=== PATIENT | male | born 1980 | race African-American/Black ===

== ENCOUNTER 2017-10-27 11:23 | Inpatient (IN) | payer OTHER ==
[2017-10-27 14:07] VITALS: BMI 24.9
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
[2017-10-27] MEDS ORDERED: MAGNESIUM CITRATE 300 ML BOTTLE PO PRN (14:40)
[2017-10-27] MEDS ORDERED: hydrOXYzine PAMOATE 50 MG CAPSULE (FP) PO PRN (14:40)
[2017-10-27] MEDS ORDERED: guaiFENesin/D-METHORPHAN HB 10 ML UNIT-DOSE CUPS PO PRN (14:40)
[2017-10-27] MEDS ORDERED: MENTHOL/PHENOL 1 EACH UD MM PRN (14:40)
[2017-10-27] MEDS ORDERED: MAGNESIUM HYDROX 2400MG/30ML ORAL SUSPENSION 30 ML CUP PO PRN (14:40)
[2017-10-27] MEDS ORDERED: chlordiazePOXIDE HCL 25 MG CAPSULE PO PRN (14:40)
[2017-10-27] MEDS ORDERED: NICOTINE POLACRILEX 2 MG GUM BUC PRN (14:40)
[2017-10-27] MEDS ORDERED: LOPERAMIDE HCL 2 MG CAPSULE PO PRN (14:40)
[2017-10-27] MEDS ORDERED: P-EPHED 60MG/TRIPROLIDI 2.5MG TABLET PO PRN (14:40)
[2017-10-27] MEDS ORDERED: MAG HYDROX/AL HYDROX/SIMETH 30 ML UNIT-DOSE CUP PO PRN (14:40)
[2017-10-27] MEDS ORDERED: chlordiazePOXIDE HCL 25 MG CAPSULE PO ONE (15:35)
[2017-10-27] MEDS: chlordiazePOXIDE HCL 25 MG CAPSULE PO SCH ×2 (17:04→22:20)
[2017-10-27] MEDS: NICOTINE 21 MG/24 HOURS TOPICAL PATCH TD SCH (17:06)
[2017-10-27 17:09] LABS: URINE APPEARANCE CLEAR; URINE BILIRUBIN NEGATIVE (NEGATIVE); URINE BLOOD NEGATIVE (NEGATIVE); URINE COLOR YELLOW; URINE GLUCOSE (UA) NEGATIVE (NEGATIVE); URINE KETONE NEGATIVE (NEGATIVE); URINE LEUK ESTERASE NEGATIVE (NEGATIVE); URINE NITRITE NEGATIVE (NEGATIVE); URINE PROTEIN NEGATIVE (NEGATIVE); URINE UROBILINOGEN NEGATIVE mg/dL (0.2-1.0)
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
[2017-10-27] MEDS: ACETAMINOPHEN 325 MG TABLET (FP) PO PRN (22:20)
[2017-10-27] MEDS: diphenhydrAMINE HCL 50 MG CAPSULE PO PRN (22:20)
[2017-10-27] MEDS: THIAMINE HCL 100 MG TABLET (FP) PO SCH (22:20)
[2017-10-28] MEDS: chlordiazePOXIDE HCL 25 MG CAPSULE PO SCH ×4 (06:03→22:12)
[2017-10-28] MEDS: IBUPROFEN 400 MG TABLET (FP) PO PRN (09:09)
--- NOTE | 2017-10-28 09:48 | EKG ---
Test Reason : Blood Pressure : / mmHG Vent. Rate : 072 BPM Atrial Rate : 072 BPM P-R Int : 146 ms QRS Dur : 086 ms QT Int : 378 ms P-R-T Axes : 061 069 047 degrees QTc Int : 413 ms NORMAL SINUS RHYTHM WITH SINUS ARRHYTHMIA NORMAL ECG NO PREVIOUS ECGS AVAILABLE Confirmed by ELISA RAMIREZ, CARLTON ([id number]) on 10/28/2017 9:47:53 AM Referred By: Confirmed By:CARLTON PÉREZ MD
[2017-10-28 10:26] LABS: HEMATOCRIT 43.6 % (35.4-49); HEMOGLOBIN 14.9 GM/dL (11.7-16.9); MCH 32.4 pg (25.7-33.7); MCHC 34.2 g/dl (32.0-35.9); MEAN CELL VOLUME 94.7 fl (80-96); MEAN PLT VOLUME 9.1 fl (7.5-11.1); PLATELET COUNT 285 K/MM3 (134-434); RDW 14.7 % (11.9-15.9); WHITE BLOOD COUNT 7.7 K/mm3 (4.0-10.0)
[2017-10-28] MEDS: PRENATAL VITAMINS W/ FOLIC ACID TABLET (FP) PO SCH (10:34)
[2017-10-28] MEDS: NICOTINE 21 MG/24 HOURS TOPICAL PATCH TD SCH (10:34)
[2017-10-28 10:36] LABS: CHLORIDE 104 mmol/L (98-107); POTASSIUM 4.6 mmol/L (3.5-5.1); SODIUM 142 mmol/L (136-145)
[2017-10-28 10:46] LABS: ALK PHOS 72 U/L (45-117); ANION GAP 12 (8-16); BILIRUBIN,TOTAL 0.7 mg/dL (0.2-1.0); BLOOD UREA NITROGEN 21 mg/dL (7-18); CALCIUM 9.1 mg/dL (8.5-10.1); CO2 26 mmol/L (21-32); GLUCOSE,RANDOM 71 mg/dL (74-106); SGOT/AST 19 U/L (15-37); SGPT/ALT 40 U/L (12-78); TOT PROT 7.8 g/dl (6.4-8.2)
--- NOTE | 2017-10-28 12:48 | PN ---
[facility] CIWA - CIWA Score Nausea/Vomitin-No Nausea/No Vomiting Muscle Tremors: 2 Anxiety: 2 Agitation: 4-Moderately Restless Paroxysmal Sweats: 3 Orientation: 0-Oriented Tacttile Disturbances: 3-Moderate Itch/Numb/Burn Auditory Disturbances: 1-Very Mild Visual Disturbances: 0-None Headache: 3-Moderate CIWA-Ar Total Score: 18 BHS Progress Note (SOAP) Subjective: Body Aches, Anxious, H/A, Interrupted Sleep. Objective: PATIENT A & O X 3, OBSERVED AMBULATING ON UNIT. NO ACUTE DISTRESS. WOUND ON TOP OF HEAD APPEARS TO BE HEALING WELL. NO SIGNS OF INFECTION NOTED. 10/28/17 12:47 Vital Signs Temperature 97.6 F 10/28/17 10:56 Pulse Rate 78 10/28/17 10:56 Respiratory Rate 18 10/28/17 10:56 Blood Pressure 144/85 10/28/17 10:56 O2 Sat by Pulse Oximetry (%) Laboratory Tests 10/27/17 10/27/17 10/28/17 16:00 16:00 05:50 WBC 7.7 RBC 4.60 Hgb 14.9 Hct 43.6 MCV 94.7 MCH 32.4 MCHC 34.2 RDW 14.7 Plt Count 285 MPV 9.1 Sodium Potassium Chloride Carbon Dioxide Anion Gap BUN Creatinine Creat Clearance w eGFR Random Glucose Calcium Total Bilirubin AST ALT Alkaline Phosphatase Total Protein Albumin Urine Color Yellow Urine Appearance Clear Urine pH 7.0 Ur Specific [place] 1.026 Urine Protein Negative Urine Glucose (UA) Negative Urine Ketones Negative Urine Blood Negative Urine Nitrite Negative Urine Bilirubin Negative Urine Urobilinogen Negative Ur Leukocyte Esterase Negative RPR Titer HIV 1&2 Antibody Screen Negative HIV P24 Antigen Negative 10/28/17 10/28/17 05:50 05:50 WBC RBC Hgb Hct MCV MCH MCHC RDW Plt Count MPV Sodium 142 Potassium 4.6 Chloride 104 Carbon Dioxide 26 Anion Gap 12 BUN 21 H Creatinine 1.0 Creat Clearance w eGFR > 60 Random Glucose 71 L Calcium 9.1 Total Bilirubin 0.7 AST 19 ALT 40 Alkaline Phosphatase 72 Total Protein 7.8 Albumin 4.0 Urine Color Urine Appearance Urine pH Ur Specific [place] Urine Protein Urine Glucose (UA) Urine Ketones Urine Blood Urine Nitrite Urine Bilirubin Urine Urobilinogen Ur Leukocyte Esterase RPR Titer Nonreactive HIV 1&2 Antibody Screen HIV P24 Antigen LABS NOTED. Assessment: 10/28/17 12:48 WITHDRAWAL SYMPTOMS. Plan: CONTINUE DETOX. INCREASE DAILY PO FLUID INTAKE.
[2017-10-28] MEDS: BACITRACIN 15 GM TUBE TOPICAL OINTMENT TP SCH (22:12)
[2017-10-28] MEDS: THIAMINE HCL 100 MG TABLET (FP) PO SCH (22:13)
[2017-10-28] MEDS: ACETAMINOPHEN 325 MG TABLET (FP) PO PRN (22:14)
[2017-10-28] MEDS: CLOTRIMAZOLE 1% CREAM 15 GM TUBE TP SCH (23:24)
[2017-10-29] MEDS: ACETAMINOPHEN 325 MG TABLET (FP) PO PRN ×3 (06:34→22:46)
[2017-10-29] MEDS: chlordiazePOXIDE HCL 25 MG CAPSULE PO SCH ×2 (06:34→10:52)
[2017-10-29] MEDS: CLOTRIMAZOLE 1% CREAM 15 GM TUBE TP SCH ×2 (10:51→22:46)
[2017-10-29] MEDS: BACITRACIN 15 GM TUBE TOPICAL OINTMENT TP SCH ×2 (10:51→22:45)
[2017-10-29] MEDS: PRENATAL VITAMINS W/ FOLIC ACID TABLET (FP) PO SCH (10:52)
[2017-10-29] MEDS: NICOTINE 21 MG/24 HOURS TOPICAL PATCH TD SCH (10:52)
[2017-10-29] MEDS: IBUPROFEN 400 MG TABLET (FP) PO PRN (10:55)
[2017-10-29] MEDS: chlordiazePOXIDE 5 MG CAPSULE PO SCH ×2 (17:29→22:45)
--- NOTE | 2017-10-29 18:38 | PN ---
[facility] CIWA - CIWA Score Nausea/Vomitin-No Nausea/No Vomiting Muscle Tremors: 2 Anxiety: 4-Mod. Anxious/Guarded Agitation: 5 Paroxysmal Sweats: 3 Orientation: 0-Oriented Tacttile Disturbances: 2-Mild Itch/Numbness/Burn Auditory Disturbances: 0-None Visual Disturbances: 0-None Headache: 0-None Present CIWA-Ar Total Score: 16 BHS COWS - Scale Resting Pulse: 0= [place] 80 or Below Sweatin= Chills/Flushing Restless Observation: 1= Difficult to Sit Still Pupil Size: 0= Normal to Room Light Bone or Joint Aches: 2= Severe Diffuse Aches Runny Nose/ Eye Tearin= None GI Upset > 30mins: 1= Stomach Cramp Tremor Observation of Outstretched Hands: 2= Slight Tremor Visible Yawning Observation: 1= 1-2x During Session Anxiety or Irritability: 2=Irritable/Anxious Goose Flesh Skin: 3=Piloerection COWS Score: 13 BHS Progress Note (SOAP) Subjective: Sweating, Tremors, Body Aches, Anxious. Objective: PATIENT A & O X 3, OBSERVED AMBULATING ON UNIT. NO ACUTE DISTRESS. 10/29/17 18:37 Vital Signs Temperature 97.8 F 10/29/17 18:12 Pulse Rate 70 10/29/17 18:12 Respiratory Rate 18 10/29/17 18:12 Blood Pressure 121/72 10/29/17 18:12 O2 Sat by Pulse Oximetry (%) Laboratory Tests 10/27/17 10/27/17 10/28/17 16:00 16:00 05:50 WBC 7.7 RBC 4.60 Hgb 14.9 Hct 43.6 MCV 94.7 MCH 32.4 MCHC 34.2 RDW 14.7 Plt Count 285 MPV 9.1 Sodium Potassium Chloride Carbon Dioxide Anion Gap BUN Creatinine Creat Clearance w eGFR Random Glucose Calcium Total Bilirubin AST ALT Alkaline Phosphatase Total Protein Albumin Urine Color Yellow Urine Appearance Clear Urine pH 7.[address] 1.026 Urine Protein Negative Urine Glucose (UA) Negative Urine Ketones Negative Urine Blood Negative Urine Nitrite Negative Urine Bilirubin Negative Urine Urobilinogen Negative Ur Leukocyte Esterase Negative RPR Titer HIV 1&2 Antibody Screen Negative HIV P24 Antigen Negative 10/28/17 10/28/17 05:50 05:50 WBC RBC Hgb Hct MCV MCH MCHC RDW Plt Count MPV Sodium 142 Potassium 4.6 Chloride 104 Carbon Dioxide 26 Anion Gap 12 BUN 21 H Creatinine 1.0 Creat Clearance w eGFR > 60 Random Glucose 71 L Calcium 9.1 Total Bilirubin 0.7 AST 19 ALT 40 Alkaline Phosphatase 72 Total Protein 7.8 Albumin 4.0 Urine Color Urine Appearance Urine pH Ur Specific [place] [address] Urine Protein Urine Glucose (UA) Urine Ketones Urine Blood Urine Nitrite Urine Bilirubin Urine Urobilinogen Ur Leukocyte Esterase RPR Titer Nonreactive HIV 1&2 Antibody Screen HIV P24 Antigen LABS NOTED. Assessment: 10/29/17 18:37 WITHDRAWAL SYMPTOMS. Plan: CONTINUE DETOX. INCREASE DAILY PO FLUID INTAKE.
[2017-10-29] MEDS: THIAMINE HCL 100 MG TABLET (FP) PO SCH (22:45)
[2017-10-29] MEDS: diphenhydrAMINE HCL 50 MG CAPSULE PO PRN (22:47)
[2017-10-30] MEDS: chlordiazePOXIDE 5 MG CAPSULE PO SCH ×2 (07:45→10:38)
[2017-10-30] MEDS: ACETAMINOPHEN 325 MG TABLET (FP) PO PRN (07:46)
[2017-10-30] MEDS: PRENATAL VITAMINS W/ FOLIC ACID TABLET (FP) PO SCH (10:38)
[2017-10-30] MEDS: NICOTINE 21 MG/24 HOURS TOPICAL PATCH TD SCH (10:38)
[2017-10-30] MEDS: CLOTRIMAZOLE 1% CREAM 15 GM TUBE TP SCH ×2 (10:39→22:36)
[2017-10-30] MEDS: BACITRACIN 15 GM TUBE TOPICAL OINTMENT TP SCH ×2 (10:39→22:36)
[2017-10-30] MEDS: IBUPROFEN 400 MG TABLET (FP) PO PRN ×3 (10:39→22:37)
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
[2017-10-30] MEDS: chlordiazePOXIDE HCL 10 MG CAPSULE PO SCH ×2 (17:32→22:38)
[2017-10-30] MEDS: THIAMINE HCL 100 MG TABLET (FP) PO SCH (22:37)
[2017-10-31] MEDS: chlordiazePOXIDE HCL 10 MG CAPSULE PO SCH (05:32)
[2017-10-31] MEDS: IBUPROFEN 400 MG TABLET (FP) PO PRN (05:33)
[2017-10-31 06:51] VITALS: BP 157/84; PULSE 80; TEMP 96.2
--- NOTE | 2017-10-31 10:00 | PN ---
S Progress Note (SOAP) Subjective: DETOX COMPLETED. ALERT O X 3. NAD. PT STATES HE IS GOING TO AFTERCARE AT [facility] Objective: 10/31/17 09:59 Vital Signs Temperature 96.2 F L 10/31/17 06:50 Pulse Rate 80 10/31/17 06:50 Respiratory Rate 18 10/31/17 06:50 Blood Pressure 157/84 10/31/17 06:50 O2 Sat by Pulse Oximetry (%) Laboratory Last Values WBC 7.7 K/mm3 (4.0-10.0) 10/28/17 05:50 RBC 4.60 M/mm3 (4.00-5.60) 10/28/17 05:50 Hgb 14.9 GM/dL (11.7-16.9) 10/28/17 05:50 Hct 43.6 % (35.4-49) 10/28/17 05:50 MCV 94.7 fl (80-96) 10/28/17 05:50 MCH 32.4 pg (25.7-33.7) 10/28/17 05:50 MCHC 34.2 g/dl (32.0-35.9) 10/28/17 05:50 RDW 14.7 % (11.9-15.9) 10/28/17 05:50 Plt Count 285 K/MM3 (134-434) 10/28/17 05:50 MPV 9.1 fl (7.5-11.1) 10/28/17 05:50 Sodium 142 mmol/L (136-145) 10/28/17 05:50 Potassium 4.6 mmol/L (3.5-5.1) 10/28/17 05:50 Chloride 104 mmol/L (98-107) 10/28/17 05:50 Carbon Dioxide 26 mmol/L (21-32) 10/28/17 05:50 Anion Gap 12 (8-16) 10/28/17 05:50 BUN 21 mg/dL (7-18) H 10/28/17 05:50 Creatinine 1.0 mg/dL (0.7-1.3) 10/28/17 05:50 Creat Clearance w eGFR > 60 (>60) 10/28/17 05:50 Random Glucose 71 mg/dL (74-106) L 10/28/17 05:50 Calcium 9.1 mg/dL (8.5-10.1) 10/28/17 05:50 Total Bilirubin 0.7 mg/dL (0.2-1.0) 10/28/17 05:50 AST 19 U/L (15-37) 10/28/17 05:50 ALT 40 U/L (12-78) 10/28/17 05:50 Alkaline Phosphatase 72 U/L (45-117) 10/28/17 05:50 Total Protein 7.8 g/dl (6.4-8.2) 10/28/17 05:50 Albumin 4.0 g/dl (3.4-5.0) 10/28/17 05:50 Urine Color Yellow 10/27/17 16:00 Urine Appearance Clear 10/27/17 16:00 Urine pH 7.0 (5.0-8.0) 10/27/17 16:00 Ur Specific [place] 1.026 (1.001-1.035) 10/27/17 16:00 Urine Protein Negative (NEGATIVE) 10/27/17 16:00 Urine Glucose (UA) Negative (NEGATIVE) 10/27/17 16:00 Urine Ketones Negative (NEGATIVE) 10/27/17 16:00 Urine Blood Negative (NEGATIVE) 10/27/17 16:00 Urine Nitrite Negative (NEGATIVE) 10/27/17 16:00 Urine Bilirubin Negative (NEGATIVE) 10/27/17 16:00 Urine Urobilinogen Negative mg/dL (0.2-1.0) 10/27/17 16:00 Ur Leukocyte Esterase Negative (NEGATIVE) 10/27/17 16:00 RPR Titer Nonreactive (NONREACTIVE) 10/28/17 05:50 HIV 1&2 Antibody Screen Negative 10/27/17 16:00 HIV P24 Antigen Negative 10/27/17 16:00 Assessment: 10/31/17 09:59 NAD Plan: D/C PT TODAY
--- NOTE | 2017-10-31 10:02 | DS ---
[facility] Detox Discharge Summary Admission Date: 10/27/17 Discharge Date: 10/31/17 - History Present History: Alcohol Dependence, Cannabis Dependence, Cocaine Dependence Additional Comments: DETOX COMPLETED. ALERT O X 3. Pertinent Past History: SEE DX BELOW - Physical Exam Results Vital Signs: Vital Signs Temperature 96.2 F L 10/31/17 06:50 Pulse Rate 80 10/31/17 06:50 Respiratory Rate 18 10/31/17 06:50 Blood Pressure 157/84 10/31/17 06:50 O2 Sat by Pulse Oximetry (%) Pertinent Admission Physical Exam Findings: WITHDRAWAL SX Allergies Allergy/AdvReac Type Severity Reaction Status Date / Time No Known Allergies Allergy Verified 10/27/17 14:11 Medications Generic Name Dose Route Start Last Admin Trade Name Freq PRN Reason Stop Dose Admin Acetaminophen 650 mg 10/27/17 14:40 10/30/17 07:46 Tylenol - PO 650 mg Q4H PRN Administration FEVER Al Hydroxide/Mg Hydroxide 30 ml 10/27/17 14:40 Mylanta Oral Suspension - PO Q6H PRN DYSPEPSIA Bacitracin 1 applic 10/28/17 22:00 10/30/17 22:36 Bacitracin - TP 1 applic BID KVNG Administration Chlordiazepoxide HCl 10 mg 10/30/17 17:00 10/31/17 05:32 Librium - PO 10/31/17 11:01 10 mg [id number] KVNG Administration Clotrimazole 1 applic 10/28/17 22:00 10/30/17 22:36 Lotrimin 1% Cream - TP 1 applic BID KVNG Administration Diphenhydramine HCl 50 mg 10/27/17 22:00 10/29/17 22:47 Benadryl - PO 50 mg HS PRN Administration INSOMNIA Eucalyptus/Menthol/Phenol/Sorbitol 1 each 10/27/17 14:40 Cepastat Lozenge - MM Q4H PRN SORE THROAT Guaifenesin 10 ml 10/27/17 14:40 Robitussin Dm - PO Q6H PRN COUGH Hydroxyzine Pamoate 50 mg 10/27/17 14:40 10/31/17 00:47 Vistaril - PO 50 mg Q4H PRN Administration AGITATION Ibuprofen 400 mg 10/27/17 14:40 10/31/17 05:33 Motrin - PO 400 mg Q6H PRN Administration PAIN LEVEL 4-6 Loperamide HCl 4 mg 10/27/17 14:40 Imodium - PO Q6H PRN DIARRHEA Magnesium Citrate 300 ml 10/27/17 14:40 Citroma - PO Q48H PRN CONSTIPATION Magnesium Hydroxide 30 ml 10/27/17 14:40 Milk Of Magnesia - PO DAILY PRN CONSTIPATION Nicotine 21 mg 10/27/17 15:35 10/30/17 10:38 Nicoderm Patch - TD Not Given DAILY KVNG Nicotine Polacrilex 2 mg 10/27/17 14:40 10/29/17 09:30 Nicorette Gum - BUC 2 mg Q2H PRN Administration NICOTINE REPLACEMENT RX Multivit/Folic Acid/Iron 1 tab 10/28/17 10:00 10/30/17 10:38 Vitamins (Sjr) - PO 1 tab DAILY KVNG Administration Pseudoephedrine/Triprolidine 1 combo 10/27/17 14:40 Actifed - PO TID PRN NASAL CONGESTION Thiamine HCl 100 mg 10/27/17 22:00 10/30/17 22:37 Vitamin B1 - PO 100 mg HS KVNG Administration Last Lab Values WBC 7.7 K/mm3 (4.0-10.0) 10/28/17 05:50 RBC 4.60 M/mm3 (4.00-5.60) 10/28/17 05:50 Hgb 14.9 GM/dL (11.7-16.9) 10/28/17 05:50 Hct 43.6 % (35.4-49) 10/28/17 05:50 MCV 94.7 fl (80-96) 10/28/17 05:50 MCH 32.4 pg (25.7-33.7) 10/28/17 05:50 MCHC 34.2 g/dl (32.0-35.9) 10/28/17 05:50 RDW 14.7 % (11.9-15.9) 10/28/17 05:50 Plt Count 285 K/MM3 (134-434) 10/28/17 05:50 MPV 9.1 fl (7.5-11.1) 10/28/17 05:50 Sodium 142 mmol/L (136-145) 10/28/17 05:50 Potassium 4.6 mmol/L (3.5-5.1) 10/28/17 05:50 Chloride 104 mmol/L (98-107) 10/28/17 05:50 Carbon Dioxide 26 mmol/L (21-32) 10/28/17 05:50 Anion Gap 12 (8-16) 10/28/17 05:50 BUN 21 mg/dL (7-18) H 10/28/17 05:50 Creatinine 1.0 mg/dL (0.7-1.3) 10/28/17 05:50 Creat Clearance w eGFR > 60 (>60) 10/28/17 05:50 Random Glucose 71 mg/dL (74-106) L 10/28/17 05:50 Calcium 9.1 mg/dL (8.5-10.1) 10/28/17 05:50 Total Bilirubin 0.7 mg/dL (0.2-1.0) 10/28/17 05:50 AST 19 U/L (15-37) 10/28/17 05:50 ALT 40 U/L (12-78) 10/28/17 05:50 Alkaline Phosphatase 72 U/L (45-117) 10/28/17 05:50 Total Protein 7.8 g/dl (6.4-8.2) 10/28/17 05:50 Albumin 4.0 g/dl (3.4-5.0) 10/28/17 05:50 Laboratory Tests 10/27/17 10/27/17 10/28/17 16:00 16:00 05:50 WBC 7.7 RBC 4.60 Hgb 14.9 Hct 43.6 MCV 94.7 MCH 32.4 MCHC 34.2 RDW 14.7 Plt Count 285 MPV 9.1 Sodium Potassium Chloride Carbon Dioxide Anion Gap BUN Creatinine Creat Clearance w eGFR Random Glucose Calcium Total Bilirubin AST ALT Alkaline Phosphatase Total Protein Albumin Urine Color Yellow Urine Appearance Clear Urine pH 7.0 Ur Specific [place] 1.026 Urine Protein Negative Urine Glucose (UA) Negative Urine Ketones Negative Urine Blood Negative Urine Nitrite Negative Urine Bilirubin Negative Urine Urobilinogen Negative Ur Leukocyte Esterase Negative RPR Titer HIV 1&2 Antibody Screen Negative HIV P24 Antigen Negative 10/28/17 10/28/17 05:50 05:50 WBC RBC Hgb Hct MCV MCH MCHC RDW Plt Count MPV Sodium 142 Potassium 4.6 Chloride 104 Carbon Dioxide 26 Anion Gap 12 BUN 21 H Creatinine 1.0 Creat Clearance w eGFR > 60 Random Glucose 71 L Calcium 9.1 Total Bilirubin 0.7 AST 19 ALT 40 Alkaline Phosphatase 72 Total Protein 7.8 Albumin 4.0 Urine Color Urine Appearance Urine pH Ur Specific [place] Urine Protein Urine Glucose (UA) Urine Ketones Urine Blood Urine Nitrite Urine Bilirubin Urine Urobilinogen Ur Leukocyte Esterase RPR Titer Nonreactive HIV 1&2 Antibody Screen HIV P24 Antigen - Treatment Hospital Course: Detox Protocol Followed, Detoxed Safely, Responded well, Discharged Condition Good, Rehab Referral Accepted Patient has Accepted a Rehab Referral to: [facility] - Medication Discharge Medications: Ambulatory Orders NK [No Known Home Medication] 10/27/17 - Diagnosis (1) Alcohol dependence with uncomplicated withdrawal Current Visit: Yes Status: Acute (2) Cannabis dependence Current Visit: Yes Status: Acute (3) History of head injury Current Visit: Yes Status: Chronic (4) Substance-induced sleep disorder Current Visit: Yes Status: Acute (5) Cocaine dependence, uncomplicated Current Visit: Yes Status: Suspected (6) Insomnia secondary to depression with anxiety Current Visit: Yes Status: Chronic (7) Nicotine dependence Current Visit: Yes Status: Acute Qualifiers: Nicotine product type: cigarettes Substance use status: in withdrawal Qualified Code(s): F17.213 - Nicotine dependence, cigarettes, with withdrawal - AMA Did Patient Leave Against Medical Advice: No
== END 2017-10-31 09:31 | disposition home or self-care (01) | DRG 774 ==
LOC: YASAS 11:23 → Y3N 15:06
PROVIDERS: ADMIT Internal Medicine; ATTEND Internal Medicine
PROC: HZ2ZZZZ Detoxification Services for Substance Abuse Treatment (ICD-10-PCS; principal; 2017-10-27)
DX: F10.230 Alcohol dependence with withdrawal, uncomplicated (principal); F14.20 Cocaine dependence, uncomplicated; F12.20 Cannabis dependence, uncomplicated; F17.213 Nicotine dependence, cigarettes, with withdrawal; F19.282 Other psychoactive substance dependence with psychoactive substance-induced sleep disorder; F51.05 Insomnia due to other mental disorder; S09.90XS Unspecified injury of head, sequela; X99 Assault by sharp object
CPT/HCPCS: 36415; 80053; 81003; 85027; 86593; 87389; 93005; 93010

== ENCOUNTER 2017-11-17 08:27 | Inpatient (IN) | payer OTHER ==
[2017-11-17 10:28] VITALS: BMI 25.2
--- NOTE | 2017-11-17 13:20 | HP ---
Admission ROS [facility] Chief Complaint: i need help to stop drinking alcohol,cocaine and marijuana Allergies/Adverse Reactions: Allergies Allergy/AdvReac Type Severity Reaction Status Date / Time No Known Allergies Allergy Verified 11/17/17 12:52 History of Present Illness: this 37 years old male with alcohol,cocaine and marijuana dependence,seeking rehab,admitted in detox [facility] 10/27/17 to 10/31/17 syncope yesterday [facility] ,discharge this am no medical problem history of head injury in 10/09 ,follow up by neurologist nicotine dependence longest period of sobriety 3 years Exam Limitations: No Limitations - Ebola screening Have you traveled outside of the country in the last 21 days: No (N) Have you had contact with anyone from an Ebola affected area: No Have you been sick,other than usual withdrawal symptoms: No Do you have a fever: No - Review of Systems Constitutional: No Symptoms Reported EENT: reports: No Symptoms Reported Respiratory: reports: No Symptoms reported GI: reports: No Symptoms Reported : reports: No Symptoms Reported Musculoskeletal: reports: No Symptoms Reported Integumentary: reports: No Symptoms Reported Neuro: reports: No Symptoms reported, Other (head injury in 10/09) Endocrine: reports: No Symptoms Reported Hematology: reports: No Symptoms Reported Psychiatric: reports: No Sypmtoms Reported, Judgement Intact, Mood/Affect Appropiate, Orientated x3 Patient History - Patient Medical History Hx Anemia: No Hx Asthma: No Hx Chronic Obstructive Pulmonary Disease (COPD): No Hx Cancer: No Hx Cardiac Disorders: No Hx Congestive Heart Failure: No Hx Hypertension: No Hx Hypercholesterolemia: No Hx Pacemaker: No HX Cerebrovascular Accident: No Hx Seizures: No Hx Dementia: No Hx Diabetes: No Hx Gastrointestinal Disorders: No Hx Liver Disease: No Hx Genitourinary Disorders: No Hx Sexually Transmitted Disorders: No Hx Renal Disease (ESRD): No Hx Thyroid Disease: No Hx Human Immunodeficiency Virus (HIV): No (11/06 negative) Hx Hepatitis C: No Hx Depression: No Hx Suicide Attempt: No Hx Bipolar Disorder: No Hx Schizophrenia: No Other Medical History: no suicidal,no homicidal - Patient Surgical History Past Surgical History: No Hx Neurologic Surgery: No Hx Cataract Extraction: No Hx Cardiac Surgery: No Hx Lung Surgery: No Hx Breast Surgery: No Hx Breast Biopsy: No Hx Abdominal Surgery: No Hx Appendectomy: No Hx Cholecystectomy: No Hx Genitourinary Surgery: No Hx Section: No Hx Orthopedic Surgery: No Anesthesia Reaction: No - PPD History Previous Implant?: Yes Documented Results: Negative w/proof Implanted On Prior [facility] Admission?: Yes Date: 10/29/17 Results: 0 mm PPD to be Administered?: No - Smoking Cessation Smoking history: Current every day smoker Have you smoked in the past 12 months: Yes Aproximately how many cigarettes per day: 20 Cigars Per Day: 0 Hx Chewing Tobacco Use: No Initiated information on smoking cessation: Yes 'Breaking Loose' booklet given: 11/17/17 - Substance & Tx. History Hx Alcohol Use: Yes Hx Substance Use: Yes Substance Use Type: Alcohol, Marijuana - Substances Abused Alcohol-cognac Route: Oral Frequency: Daily Amount used: 1-2 pts. Age of first use: 13 Date of Last Use: 11/16/17 Marijuana Route: Smoking Frequency: Daily Amount used: $20 Age of first use: 13 Date of Last Use: 11/16/17 Cocaine Route: Inhalation Frequency: No use in 30 days Amount used: 50$ Age of first use: 17 Date of Last Use: 10/27/17 Family Disease History - Family Disease History Family History: Denies Admission Physical Exam BHS - Vital Signs Vital Signs: Vital Signs - 24 hr 11/17/17 10:24 Temperature 98.1 F Pulse Rate 74 Respiratory 20 Rate Blood Pressure 133/70 - Physical General Appearance: Yes: Within Normal Limits HEENTM: Yes: Normocephalic, ALTA, Pharynx Normal Respiratory: Yes: Within Normal Limits, Lungs Clear, Normal Breath Sounds Neck: Yes: Within Normal Limits, Supple, Trachea in good position Breast: Yes: Within Normal Limits Cardiology: Yes: Within Normal Limits, Regular Rhythm, Regular Rate, S1, S2 Abdominal: Yes: Within Normal Limits, Normal Bowel Sounds, Non Tender, Flat, Soft Genitourinary: Yes: Within Normal Limits Back: Yes: Within Normal Limits Musculoskeletal: Yes: Within Normal Limits Extremities: Yes: Within Normal Limits 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, Alert, Motor Strength 5/5, Normal Mood /Affect (head injury in 10/09), Normal Response Integumentary: Yes: Within Normal Limits Lymphatic: Yes: Within Normal Limits - Diagnostic (1) Alcohol dependence Current Visit: Yes Status: Acute (2) Cannabis dependence Current Visit: No Status: Acute (3) Nicotine dependence Current Visit: No Status: Acute Qualifiers: Nicotine product type: cigarettes Substance use status: in withdrawal Qualified Code(s): F17.213 - Nicotine dependence, cigarettes, with withdrawal (4) History of head injury Current Visit: No Status: Chronic (5) Cocaine dependence, uncomplicated Current Visit: No Status: Suspected Cleared for Admission S - Detox or Rehab Claeared for Rehab Admission: Yes [facility] Breath Alcohol Content Breath Alcohol Content: 0 Urine Drug Screen - Results Drug Screen Negative: No Urine Drug Screen Results: THC-Marijuana Inpatient Rehab Admission - Initial Determination Are CD services needed?: Yes Free of communicable disease: Yes Not in need of hospitalization: Yes - Rehab Admission Criteria Previous failed treatment: Yes Poor recovery environment: Yes Comorbidities: Yes Lacks judgement: No Patient is meeting Inpatient Rehab admission criteria:: Yes
[2017-11-17] MEDS ORDERED: guaiFENesin/D-METHORPHAN HB 10 ML UNIT-DOSE CUPS PO PRN (13:34)
[2017-11-17] MEDS ORDERED: ACETAMINOPHEN 325 MG TABLET (FP) PO PRN (13:34)
[2017-11-17] MEDS ORDERED: MAG HYDROX/AL HYDROX/SIMETH 30 ML UNIT-DOSE CUP PO PRN (13:34)
[2017-11-17] MEDS ORDERED: LOPERAMIDE HCL 2 MG CAPSULE PO PRN (13:34)
[2017-11-17] MEDS ORDERED: MAGNESIUM HYDROX 2400MG/30ML ORAL SUSPENSION 30 ML CUP PO PRN (13:34)
[2017-11-17] MEDS ORDERED: IBUPROFEN 400 MG TABLET (FP) PO PRN (13:34)
[2017-11-17] MEDS ORDERED: NICOTINE POLACRILEX 2 MG GUM BUC PRN (13:34)
[2017-11-17] MEDS ORDERED: MAGNESIUM CITRATE 300 ML BOTTLE PO PRN (13:34)
[2017-11-17] MEDS ORDERED: MENTHOL/PHENOL 1 EACH UD MM PRN (13:34)
[2017-11-17] MEDS ORDERED: hydrOXYzine PAMOATE 50 MG CAPSULE (FP) PO PRN (13:34)
[2017-11-17] MEDS ORDERED: P-EPHED 60MG/TRIPROLIDI 2.5MG TABLET PO PRN (13:34)
[2017-11-17] MEDS: NICOTINE 21 MG/24 HOURS TOPICAL PATCH TD SCH (16:04)
[2017-11-17] MEDS: THIAMINE HCL 100 MG TABLET (FP) PO SCH (22:17)
--- NOTE | 2017-11-18 10:09 | EKG ---
Test Reason : Blood Pressure : / mmHG Vent. Rate : 075 BPM Atrial Rate : 075 BPM P-R Int : 142 ms QRS Dur : 086 ms QT Int : 382 ms P-R-T Axes : 058 061 042 degrees QTc Int : 426 ms NORMAL SINUS RHYTHM WITH SINUS ARRHYTHMIA RSR' OR QR PATTERN IN V1 SUGGESTS RIGHT VENTRICULAR CONDUCTION DELAY Confirmed by DEVEN BOYD MD ([id number]) on 11/18/2017 10:09:10 AM Referred By: Gordy JEAN-BAPTISTE Confirmed By:DEVEN BOYD MD
[2017-11-18] MEDS: PRENATAL VITAMINS W/ FOLIC ACID TABLET (FP) PO SCH (10:13)
[2017-11-18] MEDS: NICOTINE 21 MG/24 HOURS TOPICAL PATCH TD SCH (10:13)
--- NOTE | 2017-11-18 10:13 | HP ---
Psychiatrist Admission - Data Date of interview: 11/18/17 Admission source: 3N Identifying data: This is the first 5N inpatient rehabilitation admission for this 37 year old single male father of one, he is unemployed and lives alone. Medical History: head injury in 09/2017, smokes cigarettes 20 a day. Psychiatric History: Patient reports was seen by a psychiatrist while in [place](from age 13 to 16), and was under the treatment with Wellbutrin "for concentration", no history of psychiatric hospitalizations, states has insomnia and Benadryl was helpful. Vital Signs: Vital Signs - 24 hr 11/17/17 11/17/17 11/18/17 10:24 15:57 00:30 Temperature 98.1 F 98.8 F Pulse Rate 74 71 Respiratory 20 18 18 Rate Blood Pressure 133/70 135/85 11/18/17 11/18/17 03:28 06:38 Temperature Pulse Rate Respiratory 18 18 Rate Blood Pressure Allergies/Adverse Reactions: Allergies Allergy/AdvReac Type Severity Reaction Status Date / Time No Known Allergies Allergy Verified 11/17/17 12:52 - Substance Abuse/Tx History Hx Alcohol Use: Yes (1-2 pints of cognac) Hx Substance Use: Yes Substance Use Type: Alcohol, Cocaine (No use in 30 days, started at age of 17, daily use $50), Marijuana (started at age of 13, daily $20) Hx Substance Use Treatment: Yes Mental Status Exam - Mental Status Exam Alert and Oriented to: Time, Place, Person Cognitive Function: Grossly Intact Patient Appearance: Well Groomed Mood: Hopeful Affect: Appropriate, Mood Congruent Patient Behavior: Appropriate, Cooperative Speech Pattern: Clear, Appropriate Voice Loudness: Normal Thought Process: Intact, Goal Oriented Thought Disorder: Not Present Hallucinations: Denies Suicidal Ideation: Denies Homicidal Ideation: Denies Sleep: Poorly, Difficulty falling asleep Appetite: Fair Muscle strength/Tone: Normal Gait/Station: Normal Psychiatric Findings - Problem List ([place] 1, 2,3) (1) Cocaine use Current Visit: Yes Status: Acute (2) Alcohol dependence Current Visit: Yes Status: Acute (3) Cannabis dependence Current Visit: No Status: Acute (4) Nicotine dependence Current Visit: No Status: Acute Qualifiers: Nicotine product type: cigarettes Substance use status: in withdrawal Qualified Code(s): F17.213 - Nicotine dependence, cigarettes, with withdrawal (5) Substance-induced sleep disorder Current Visit: No Status: Acute (6) History of head injury Current Visit: No Status: Chronic - Initial Treatment Plan Initial Treatment Plan: Will add Benadryl 50 mg po hs, monitor progress as needed.
--- NOTE | 2017-11-18 13:55 | HP ---
Psychiatrist Admission - Data Vital Signs: Vital Signs - 24 hr 11/17/17 11/18/17 11/18/17 15:57 00:30 03:28 Temperature 98.8 F Pulse Rate 71 Respiratory 18 18 18 Rate Blood Pressure 135/85 11/18/17 06:38 Temperature Pulse Rate Respiratory 18 Rate Blood Pressure Allergies/Adverse Reactions: Allergies Allergy/AdvReac Type Severity Reaction Status Date / Time No Known Allergies Allergy Verified 11/17/17 12:52 - Substance Abuse/Tx History Hx Alcohol Use: Yes (cognac ) Hx Substance Use: Yes Substance Use Type: Cocaine (last month daily ), Marijuana (daily $20)
[2017-11-18] MEDS: THIAMINE HCL 100 MG TABLET (FP) PO SCH (21:12)
[2017-11-18] MEDS: diphenhydrAMINE HCL 50 MG CAPSULE PO PRN (21:13)
[2017-11-19] MEDS: PRENATAL VITAMINS W/ FOLIC ACID TABLET (FP) PO SCH (09:54)
[2017-11-19] MEDS: NICOTINE 21 MG/24 HOURS TOPICAL PATCH TD SCH (09:55)
[2017-11-19] MEDS: MELATONIN 5 MG TABLETS PO PRN (21:15)
[2017-11-19] MEDS: THIAMINE HCL 100 MG TABLET (FP) PO SCH (21:15)
[2017-11-20] MEDS: PRENATAL VITAMINS W/ FOLIC ACID TABLET (FP) PO SCH (10:04)
[2017-11-20] MEDS: NICOTINE 21 MG/24 HOURS TOPICAL PATCH TD SCH (10:04)
[2017-11-20] MEDS: THIAMINE HCL 100 MG TABLET (FP) PO SCH (21:04)
[2017-11-20] MEDS: diphenhydrAMINE HCL 50 MG CAPSULE PO PRN (21:04)
[2017-11-20] MEDS: MELATONIN 5 MG TABLETS PO PRN (22:41)
[2017-11-21 06:50] VITALS: BP 126/73; PULSE 62; TEMP 98
[2017-11-21] MEDS: PRENATAL VITAMINS W/ FOLIC ACID TABLET (FP) PO SCH (10:14)
[2017-11-21] MEDS: NICOTINE 21 MG/24 HOURS TOPICAL PATCH TD SCH (10:14)
--- NOTE | 2017-11-21 12:02 | PN ---
Psychiatric Progress Note Vital Signs: Vital Signs Period Temp Pulse Resp BP Sys/Arguelles Pulse Ox Last 24 Hr 98 F 62 18-18 126/73 Date of Session: 11/21/17 Chief Complaint:: leaving ama HPI: 37 year old male admitted on 11/17/17, day 3 of rehabilitation treatment, history of alcohol, cocaine, cannabis, nicotine dependence comorbid substance induced sleep disorder. ROS: WNL Current Medications: Active Medications Generic Name Dose Route Start Last Admin Trade Name Freq PRN Reason Stop Dose Admin Acetaminophen 650 mg 11/17/17 13:34 Tylenol - PO Q4H PRN FEVER Al Hydroxide/Mg Hydroxide 30 ml 11/17/17 13:34 Mylanta Oral Suspension - PO Q6H PRN DYSPEPSIA Diphenhydramine HCl 50 mg 11/18/17 14:00 11/20/17 21:04 Benadryl - PO 50 mg HS PRN Administration INSOMNIA Eucalyptus/Menthol/Phenol/Sorbitol 1 each 11/17/17 13:34 Cepastat Lozenge - MM Q4H PRN SORE THROAT Guaifenesin 10 ml 11/17/17 13:34 Robitussin Dm - PO Q6H PRN COUGH Hydroxyzine Pamoate 50 mg 11/17/17 13:34 Vistaril - PO Q4H PRN AGITATION Ibuprofen 400 mg 11/17/17 13:34 11/20/17 10:05 Motrin - PO 400 mg Q6H PRN Administration Pain Level 4-6 Loperamide HCl 4 mg 11/17/17 13:34 Imodium - PO Q6H PRN DIARRHEA Magnesium Citrate 300 ml 11/17/17 13:34 Citroma - PO Q48H PRN CONSTIPATION Magnesium Hydroxide 30 ml 11/17/17 13:34 Milk Of Magnesia - PO DAILY PRN CONSTIPATION Melatonin 5 mg 11/17/17 22:00 11/20/17 22:41 Melatonin PO 5 mg HS PRN Administration INSOMNIA Nicotine 21 mg 11/17/17 15:00 11/21/17 10:14 Nicoderm Patch - TD Not Given DAILY KVNG Nicotine Polacrilex 2 mg 11/17/17 13:34 Nicorette Gum - BUC Q2H PRN NICOTINE REPLACEMENT RX Multivit/Folic Acid/Iron 1 tab 11/18/17 10:00 04/02/18 10:14 Vitamins (Sjr) - PO 1 tab DAILY KVNG Administration Pseudoephedrine/Triprolidine 1 combo 11/17/17 13:34 Actifed - PO TID PRN NASAL CONGESTION Thiamine HCl 100 mg 11/17/17 22:00 11/20/17 21:04 Vitamin B1 - PO 100 mg HS KVNG Administration Current Side Effect: No Lab tests ordered: No Lab tests reviewed: Yes Provider note:: Met with the patient to explore reasons for his decision to leave treatment AMA, he reports that he needs to leave to take care of his personal business, patient was encouraged to stay and focus on his recovery but adamant to leave, patient is stable for am. Total face to face time:: 15 Mental Status Exam - Mental Status Exam Alert and Oriented to: Time, Place, Person Cognitive Function: Good Patient Appearance: Well Groomed Affect: Appropriate, Mood Congruent Patient Behavior: Appropriate, Cooperative Speech Pattern: Clear, Appropriate Voice Loudness: Normal Thought Process: Goal Oriented Thought Disorder: Not Present Hallucinations: Denies Suicidal Ideation: Denies Homicidal Ideation: Denies Insight/Judgement: Fair Sleep: Fair Appetite: Fair Muscle strength/Tone: Normal Gait/Station: Normal Psychiatric Treatment Plan - Problem List (1) Cocaine use Current Visit: Yes (2) Alcohol dependence Current Visit: Yes (3) Cannabis dependence Current Visit: No (4) Nicotine dependence Current Visit: No Qualifiers: Nicotine product type: cigarettes Substance use status: in withdrawal Qualified Code(s): F17.213 - Nicotine dependence, cigarettes, with withdrawal (5) Substance-induced sleep disorder Current Visit: No (6) History of head injury Current Visit: No
== END 2017-11-21 11:27 | disposition left against medical advice (07) | DRG 770 ==
LOC: YASAS 08:27 → Y5N 14:59
PROVIDERS: ADMIT Psychiatry & Neurology Psychiatry; ATTEND Psychiatry & Neurology Psychiatry
PROC: HZ42ZZZ Group Counseling for Substance Abuse Treatment, Cognitive-Behavioral (ICD-10-PCS; principal; 2017-11-17)
DX: F10.20 Alcohol dependence, uncomplicated (principal); F14.20 Cocaine dependence, uncomplicated; F12.20 Cannabis dependence, uncomplicated; F17.210 Nicotine dependence, cigarettes, uncomplicated; F19.282 Other psychoactive substance dependence with psychoactive substance-induced sleep disorder; Z87.828 Personal history of other (healed) physical injury and trauma
CPT/HCPCS: 93005; 93010